=== PATIENT | male | born 1965 | race Caucasian/White ===

== ENCOUNTER 2018-01-30 05:45 | Day surgery (SDC) | payer MEDICARE ==
[~2018-01-30] VITALS: Ht 188 cm; Wt 122.7 kg
--- NOTE | ~2018-01-30 | OP ---
PATIENT NAME: KAT SIMON MEDICAL RECORD: [id number] :63 LOCATION:[facility] ADMISSION DATE: SURGEON: NURIA SIMS DO DATE OF OPERATION: 01/30/2018 PROCEDURE: EGD with biopsies. INDICATIONS FOR PROCEDURE: Dysphagia and epigastric abdominal pain. SCOPE: Olympus video gastroscope. MEDICATIONS: Propofol 250 mg IV per anesthesia. ESTIMATED BLOOD LOSS: Minimal. COMPLICATIONS: None. FINDINGS: Informed consent was given. The patient was made comfortable with the above medication. After reaching an adequate level of sedation by slow IV push, the patient was placed on his left side. The endoscope was advanced under direct visualization through the mouth to the second portion of the duodenum. The upper, middle, and lower thirds of the esophagus appeared normal. Random cold forceps biopsies were taken in the mid esophagus to rule out eosinophilic esophagitis. At the GE junction, there was a question of some mild stenosis, so an 18-20 mm dilating CRE balloon was placed through the working channel and the GE junction was dilated up to 20 mm maximum diameter. Also, at the GE junction, there was some mild LA class A reflux induced esophagitis and possible Torres's esophagus, which would be a very short segment. Cold forceps biopsies were taken to make this determination. The endoscope was advanced beyond the GE junction into the stomach and retroflexed to view the cardia, where a very small sliding hiatal hernia was present. Throughout the entire stomach, there was some congestion consistent with possible gastritis. Random biopsies were taken to submit for histology and to rule out H. pylori. There were no ulcers or erosions visualized within the stomach. The endoscope was advanced beyond the pylorus into the duodenum where the entire examined duodenum appeared normal. The endoscope was then withdrawn from the patient. The patient tolerated the procedure well and there were no complications. IMPRESSION: 1. LA class A reflux induced esophagitis and possible Torres's esophagus at the GE junction, biopsies pending. 2. Questionable esophageal stenosis at the GE junction, status post dilation with a balloon to 20 mm. 3. Small sliding hiatal hernia. 4. Possible gastritis, biopsies pending. PLAN AND RECOMMENDATIONS: 1. Discharge home when recovery parameters are met. 2. GERD diet and reflux precautions. 3. Continue current medications including pantoprazole 40 mg daily, plus or minus Carafate 1 gram before meals and at bedtime. 4. If the dysphagia does not improve, status post dilation, I would recommend a manometry study. 5. Follow up with GI as needed if the dysphagia is improved. OPERATIVE REPORT [id number] KAT SIMON TRANSINT:[id number] Voice Confirmation ID: [id number] DOCUMENT ID: [id number] NURIA SIMS DO at 1524 CC: [id number] DICTATION DATE: 01/30/18 08 LOG RIDER: 01/30/18 1134 [facility] 01/30/18 [facility] [address] [place] [address]
[2018-01-30] MEDS ORDERED: NORVASC10 MG PO (06:19)
[2018-01-30] MEDS ORDERED: ASPIRIN325 MG PO (06:20)
[2018-01-30] MEDS ORDERED: ANORO ELLIPTA1 EACH INH (06:20)
[2018-01-30] MEDS ORDERED: NEURONTIN 300300 MG (06:21)
[2018-01-30] MEDS ORDERED: ENULOSE10 G/15 ML PO (06:21)
[2018-01-30] MEDS ORDERED: ATIVAN1 MG PO (06:22)
[2018-01-30] MEDS ORDERED: COZAAR50 MG (06:22)
[2018-01-30] MEDS ORDERED: TOPROL XL50 MG PO (06:23)
[2018-01-30] MEDS ORDERED: NITROQUICK0.4 MG SL (06:23)
[2018-01-30] MEDS ORDERED: ZOFRAN8 MG PO (06:24)
[2018-01-30] MEDS ORDERED: OXYCONTIN15 MG PO (06:24)
[2018-01-30] MEDS ORDERED: CARAFATE1 G PO (06:25)
[2018-01-30] MEDS ORDERED: PROTONIX40 MG PO (06:25)
[2018-01-30] MEDS ORDERED: FLOMAX0.4 MG PO (06:25)
[2018-01-30] MEDS ORDERED: ZANAFLEX4 MG PO (06:26)
[2018-01-30] MEDS ORDERED: EFFEXOR XR150 MG PO (06:26)
[2018-01-30] MEDS ORDERED: VOLTAREN100 GM TOPICAL (06:27)
[2018-01-30] MEDS ORDERED: VENTOLIN HFA18 GM INH (06:27)
[2018-01-30 06:40] VITALS: BP 124/81; Ht 188 cm; Wt 122.7 kg
[2018-01-30 06:46] LABS: BASOPHILS 0.3 % (0-2); EOSINOPHILS 4.1 % (0-7); HEMATOCRIT 44.3 % (42.0-54.0); HEMOGLOBIN 14.8 g/dL (13.5-17.5); IMMATURE GRANULOCYTES 0.2 % (0-5); LYMPHOCYTES 25.2 % (15-50); MCH 28.8 pg (26.0-34.0); MCHC 33.4 g/dL (31.0-37.0); MCV 86.4 fL (80.0-100.0); MEAN PLATELET VOLUME 10.5 fL (7.4-10.4); MONOCYTES 4.6 % (2-11); NEUTROPHILS 65.6 % (40-80); PLATELET COUNT 177 10x3/uL (130-400); RBC 5.13 10x6/uL (4.20-6.10); RDW 15.5 % (11.5-14.5); WBC 9.7 10x3/uL (4.8-10.8)
[2018-01-30 07:25] LABS: CALC OSMOLALITY 277 mosm/kg (275-300); CALCIUM 8.5 mg/dL (8.5-10.1); CARBON DIOXIDE 26.3 mmol/L (21.0-32.0); CHLORIDE - SERUM 104 mmol/L (98-107); GLUCOSE 104 mg/dL (74-106); POTASSIUM - SERUM 3.5 mmol/L (3.5-5.1); SODIUM 140 mmol/L (136-145); UREA NITROGEN 9 mg/dL (7-18); eGFR NON AFRICAN AMERICAN 83 mL/min (90-120)
== END 2018-01-30 09:00 | disposition home or self-care (01) ==
LOC: D.OPS 05:45
PROVIDERS: Anesthesiology
DX: R10.13 Epigastric pain (principal); R13.10 Dysphagia, unspecified; F17.200 Nicotine dependence, unspecified, uncomplicated; I10 Essential (primary) hypertension; K21.0 Gastro-esophageal reflux disease with esophagitis; K44.9 Diaphragmatic hernia without obstruction or gangrene; J44.9 Chronic obstructive pulmonary disease, unspecified; G47.30 Sleep apnea, unspecified; E66.9 Obesity, unspecified; Z01.812 Encounter for preprocedural laboratory examination

== ENCOUNTER 2019-01-29 05:33 | Day surgery (SDC) | payer MEDICARE ==
[~2019-01-29] VITALS: Ht 188 cm; Wt 142.3 kg
[~2019-01-29 05:33] MED LIST: ANORO ELLIPTA1 EACH INH; ASPIRIN325 MG PO; ATIVAN1 MG PO; CARAFATE1 G PO; COZAAR50 MG PO; EFFEXOR XR150 MG PO; ENULOSE10 G/15 ML PO; FLOMAX0.4 MG PO; NEURONTIN 300300 MG PO; NITROQUICK0.4 MG SL; NORVASC10 MG PO; OXYCONTIN15 MG PO; PROTONIX40 MG PO; TOPROL XL50 MG PO; VENTOLIN HFA18 GM INH; VOLTAREN100 GM TOPICAL; ZANAFLEX4 MG PO; ZOFRAN8 MG PO
[2019-01-29] MEDS ORDERED: CYMBALTA30 MG PO (07:07)
[2019-01-29] MEDS ORDERED: MORPHINE SULFAT15 M4 PO (07:09)
[2019-01-29] MEDS ORDERED: TRAZODONE HCL150 MG PO (07:12)
[2019-01-29] MEDS ORDERED: PROSCAR5 MG PO (07:13)
[2019-01-29] MEDS ORDERED: REPATHA SY140 MG/1 M SC (07:13)
[2019-01-29] MEDS ORDERED: VITAMIN D250000 UNIT PO (07:14)
[2019-01-29] MEDS ORDERED: GLIMEPIRIDE1 MG PO (07:14)
[2019-01-29] MEDS ORDERED: VALIUM5 MG PO (07:15)
[2019-01-29 07:30] VITALS: BP 120/73; Ht 188 cm; Wt 142.3 kg
--- NOTE | 2019-01-29 09:14 | NUR ---
DC INSTRUCTIONS GIVEN TO PT/FAMILY. STATE UNDERSTANDING. DC'D IV CATH FULLY INTACT.
--- NOTE | 2019-01-29 09:31 | NUR ---
PT LEFT UNIT VIA WC AT 0908
--- NOTE | 2019-01-31 18:24 | OP ---
PATIENT NAME: KAT SIMON MEDICAL RECORD: [id number] :63 LOCATION:[facility] ADMISSION DATE: SURGEON: NURIA SIMS DO DATE OF OPERATION: 01/29/2019 PROCEDURE: EGD with biopsies and balloon dilation. INDICATIONS FOR PROCEDURE: Dysphagia, epigastric abdominal pain, and nausea. SCOPE: Olympus video gastroscope. MEDICATIONS: Propofol 180 mg IV per anesthesia. ESTIMATED BLOOD LOSS: Minimal. COMPLICATIONS: None. FINDINGS: Informed consent was given. The patient was made comfortable with the above medication. After reaching an adequate level of sedation by slow IV push, the patient was placed on his left side. The endoscope was advanced under direct visualization through the mouth to the second portion of the duodenum. The upper, middle, and lower thirds of the esophagus appeared normal. At the GE junction, there was evidence of LA class C, reflux-induced esophagitis. This was biopsied 1 year ago and was normal other than reflux changes. No biopsies were taken today. There was some questionable stenosis. Based on the patient's symptoms, an 18-20 mm dilating balloon was placed across the GE junction and the site was dilated up to 20 mm successfully. The endoscope was advanced into the stomach and retroflexed to view the cardia and fundus, which appeared normal. Throughout the body, antrum, and prepyloric regions of the stomach, there was some erythema and granularity consistent with gastritis. Random cold forceps biopsies were taken to submit for histopathology and to rule out the presence of H. pylori. The endoscope was advanced beyond the pylorus into the duodenum which appeared normal down to the second portion. The endoscope was withdrawn from the patient. The patient tolerated the procedure well and there were no complications. IMPRESSION: 1. LA class C reflux-induced esophagitis. 2. Esophageal stenosis status post dilation to 20 mm with a CRE balloon. 3. Gastritis. PLAN AND RECOMMENDATIONS: 1. Discharge home when recovery parameters are met. 2. Follow up biopsy specimen results. 3. GERD diet and reflux precautions. 4. Continue current medications. 5. Follow up in GI clinic as needed. 6. If dysphagia persists, consider esophageal manometry or barium esophagram. TRANSINT:[id number] Voice Confirmation ID: [id number] DOCUMENT ID: [id number] OPERATIVE REPORT [id number] KAT SIMON NURIA SIMS DO at 1824 CC: [id number] DICTATION DATE: 01/29/19 0837 [employer] TEACHER: 01/29/19 1027 [facility] 01/29/19 [place] [id number] [place] [address]
== END 2019-01-29 09:20 | disposition home or self-care (01) ==
LOC: D.OPS 05:33
PROVIDERS: ATTEND Internal Medicine Gastroenterology
DX: R13.10 Dysphagia, unspecified (principal); R10.11 Right upper quadrant pain; R11.2 Nausea with vomiting, unspecified

== ENCOUNTER 2019-02-07 05:54 | Day surgery (SDC) | payer MEDICARE ==
[~2019-02-07 05:54] MED LIST changes: +CYMBALTA30 MG PO; +GLIMEPIRIDE1 MG PO; +MORPHINE SULFAT15 M4 PO; +PROSCAR5 MG PO; +REPATHA SY140 MG/1 M SC; +TRAZODONE HCL150 MG PO; +VALIUM5 MG PO; +VITAMIN D250000 UNIT PO
[2019-02-07 07:30] VITALS: BP 116/64; BMI 40.6
[2019-02-07 08:09] LABS: HEMATOCRIT 45.7 % (42.0-54.0); HEMOGLOBIN 16.4 g/dL (13.5-17.5); MCH 32.5 pg (26.0-34.0); MCHC 35.9 g/dL (31.0-37.0); MCV 90.5 fL (80.0-100.0); RBC 5.05 10x6/uL (4.20-6.10); RDW 14.4 % (11.5-14.5); WBC 8.9 10x3/uL (4.8-10.8)
[2019-02-07 08:22] LABS: ANION GAP 14.7 mmol/L (8-16); CALCIUM 8.3 mg/dL (8.5-10.1); CARBON DIOXIDE 26.1 mmol/L (21.0-32.0); CREATININE - SERUM 1.1 mg/dL (0.6-1.3); POTASSIUM - SERUM 3.8 mmol/L (3.5-5.1)
--- NOTE | 2019-02-12 07:50 | OP ---
PATIENT NAME: KAT SIMON MEDICAL RECORD: [id number] :63 LOCATION:[facility] ADMISSION DATE: SURGEON: NURIA SIMS DO DATE OF OPERATION: 02/07/2019 PROCEDURE: Colonoscopy with polypectomy. INDICATIONS FOR PROCEDURE: Left upper quadrant pain and change in bowel habits. The patient's last colonoscopy was 07/20/2017. Reason for repeat sooner than stated is above indications. SCOPE: Olympus video pediatric colonoscope. MEDICATIONS: Propofol 1200 mg IV per anesthesia. WITHDRAWAL TIME: 29 minutes. ESTIMATED BLOOD LOSS: Minimal. COMPLICATIONS: None. FINDINGS: Informed consent was given. The patient was made comfortable with the above medication. After reaching an adequate level of sedation by slow IV push, the patient was placed on his left side. A digital rectal examination was performed and was normal. The endoscope was advanced under direct visualization through the rectum to the cecum, confirmed by the presence of the appendiceal orifice and ileocecal valve. There was evidence of a prior intervention in the sigmoid region. This appeared to be a partial colon resection with primary re-anastomosis. The site appeared normal. In the ascending colon, there were 3 separate polyps. They were all benign appearing and sessile. They ranged in size from 5 mm to 9 mm in diameter. They were all removed using a hot snare in 1 piece and completely retrieved. At the site where the largest polyp was removed, a single endoclip was used for tissue positioning after removal of the polyp. In the transverse colon, there were two separate benign-appearing sessile polyps, which ranged in size from 4-6 mm in diameter. They were both removed using a hot snare in 1 piece and completely retrieved. In the rectum, there was a single benign-appearing sessile polyp, which measured approximately 4 mm in diameter. It was removed using hot snare in 1 piece and completely retrieved. Retroflexion was performed in the rectum with normal-appearing rectal wall. The endoscope was withdrawn from the patient. The patient tolerated the procedure well, and there were no complications. IMPRESSION: 1. Six polyps as described above removed using hot snare. The largest polyp site received an endoclip for tissue positioning. 2. Evidence of prior intervention involving the sigmoid region. PLAN AND RECOMMENDATIONS: 1. Discharge home when recovery parameters are met. 2. Follow up biopsy specimen results. 3. High-fiber diet. 4. Continue current medications. 5. We will try to get preauthorization for Movantik 25 mg daily for what I believe is opioid-induced constipation. 6. If this cannot be approved, we will consider medication such as Linzess or OPERATIVE REPORT [id number] KAT SIMON. 7. Recall colonoscopy in 2 years based on the number and size of polyps removed on today's examination. TRANSINT:[id number] Voice Confirmation ID: [id number] DOCUMENT ID: [id number] NURIA SIMS DO at 0750 CC: [id number] DICTATION DATE: 02/07/19 0907 PORTRAIT PHOTOGRAPHER: 02/07/19 1231 [facility] 02/07/19 [facility] [address] [place] [address]
== END 2019-02-07 10:28 | disposition home or self-care (01) ==
LOC: D.OPS 05:54
PROVIDERS: Anesthesiology; ATTEND Internal Medicine Gastroenterology
DX: D12.2 Benign neoplasm of ascending colon (principal); D12.3 Benign neoplasm of transverse colon; D12.8 Benign neoplasm of rectum; Z01.812 Encounter for preprocedural laboratory examination